=== PATIENT | male | born 1960 | race Caucasian/White ===

== ENCOUNTER → 2021-04-18 14:35 | Outpatient (BNVA) | payer MEDICARE, MEDICAID, SELFPAY | PROVIDERS: Family Provider Internal Medicine; PCP Internal Medicine; Visit Provider Internal Medicine Cardiovascular Disease | DX: I25.10 Atherosclerotic heart disease of native coronary artery without angina pectoris (principal); I11.0 Hypertensive heart disease with heart failure; I50.9 Heart failure, unspecified; I48.92 Unspecified atrial flutter; I47.2 Ventricular tachycardia | CPT/HCPCS: 99214 ==

== ENCOUNTER 2022-07-17 16:10 | Outpatient (CLI) | payer MEDICARE, MEDICAID, SELFPAY ==
--- NOTE | 2022-07-17 16:18 | CT_ITS ---
WS: [id number] CT HIP, WITH AND WITHOUT CONTRAST. 3-D HISTORY: RT HIP PAIN, PROSTATE CANCER, LEG WEAKNESS Technique: All CT scans at [facility] use at least one of these dose optimization techniques: automated exposure control; mA and/or kV adjustment per patient size (includes targeted exams where dose is matched to clinical indication); or iterative reconstruction. DLP: 1260.42 mGy-cm. Contrast: Omnipaque 350; 95 mL IV. COMPARISON: Radiographs 11/11/2018 No sclerotic or lytic bone lesions. No pathological fractures. Moderate narrowing of the joint. There is mild osteophytic ridging around the femoral head. Acetabular osteophytic ridging is also present. There are a few small subchondral cysts in both the femoral head and the superior acetabulum. The fe moral head abuts the superior lateral acetabulum with bone upon bone. No soft tissue mass or enhancin g lesions. Moderate SI joint arthritis. There is degenerative air in the SI joints but no destructive process. N o fusion of the SI joint. Moderate arterial calcifications in this iliac arteries. Urinary bladder is nondistended. Gallbladder wall thickening due to the underdistention. No adenopathy. CT/CT hip RT wo/w con [id number] IMPRESSION: 1. 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 2. There is bone upon bone involving the superior lateral hip joint. 3. No destructive bone lesions. No fracture.
[2022-07-17 16:59] LABS: Blood Urea Nitrogen 19 mg/dL (8-23); Glomerular Filtration Rate 75.7 mL/min (90-130)
[2022-07-17] MEDS: iohexol 350 mg/mL 500 mL Btl (per mL) IV (17:10)
== END 2022-07-17 16:11 | disposition home or self-care (01) ==
LOC: RAD 16:12
PROVIDERS: Radiology Neuroradiology; PCP Internal Medicine; Visit Provider Internal Medicine
DX: M16.11 Unilateral primary osteoarthritis, right hip (principal); Z91.81 History of falling; C61 Malignant neoplasm of prostate; R26.9 Unspecified abnormalities of gait and mobility; R27.9 Unspecified lack of coordination; R53.1 Weakness
CPT/HCPCS: 73702; 82565; 84520; Q9967

== ENCOUNTER → 2022-08-14 14:32 | Outpatient (BNVA) | payer MEDICARE, MEDICAID, SELFPAY | PROVIDERS: PCP Internal Medicine; Visit Provider Internal Medicine Cardiovascular Disease | DX: I25.10 Atherosclerotic heart disease of native coronary artery without angina pectoris (principal); I48.92 Unspecified atrial flutter; I11.0 Hypertensive heart disease with heart failure; I50.30 Unspecified diastolic (congestive) heart failure | CPT/HCPCS: 99214 ==

== ENCOUNTER 2023-07-30 11:15 | Emergency (ER) | payer MEDICARE, MEDICAID, SELFPAY ==
[2023-07-30 11:36] VITALS: BP 111/74; PULSE 71; RESP 18; TEMP 36.4; O2SAT 91
--- NOTE | 2023-07-30 11:49 | XRR_ITS ---
PROCEDURE INFORMATION: Exam: XR Left Finger(s) Exam date and time: 07/30/2023 11:54 AM Age: 62 years old Clinical indication: Swelling; Fingers; Left; Additional info: Middle finger swelling/redness TECHNIQUE: Imaging protocol: Radiologic exam of the left fingers. Views: Minimum 2 views. COMPARISON: CR XR finger LT min 2V [id number] 11/11/2018 2:30 PM FINDINGS: Bones/joints: Mild arthritis D IP joint. Otherwise, unremarkable. Soft tissues: Normal. XR/XR finger LT min 2V [id number] IMPRESSION: No acute findings.
--- NOTE | 2023-07-30 11:49 | ED_ITS ---
Documented by User: ALLI Aleman 07/30/23 16:36 HPI - Extremity Problem 2 General: Chief complaint: Extremity Problem,Nontraumatic Stated complaint: Right hand swelling/redness Time Seen by Provider: 07/30/23 11:36 Source: patient Mode of arrival: ambulatory Limitations: no limitations History of Present Illness: Patient is a nice 62-year-old male presents to ED today with a complaint of swelling, pain, redness, and warmth involving the left middle finger. He states 2 days ago the finger felt somewhat sore around his DIP joint. He denies any injury or trauma. Has not noticed any scratches, abrasions, bites, etc. He states the next day the finger was considerably swollen and red and warm to the touch. He states since then he has noticed significant pain with range of motion. No fevers. He does feel like the swelling is now extending into the dorsum of his right hand. MD Complaint: extremity pain and extremity swelling Onset (ago): day(s) Pain Consistency: constant Location: left and upper extremity (L middle finger) Quality: burning Radiation: none Relieving factors: nothing Exacerbating factors: range of motion Associated symptoms: Reports no associated symptoms; Deny fever(s) Review of Systems 2 Const: Denies: fever(s), chills, body aches, fatigue or malaise Musc: Reports: extremity pain and extremity swelling Neuro: Denies: numbness in extremities or sensory changes PFSH ED 2 PFSH: Medical History Ventricular tachycardia Diabetes CHF (congestive heart failure) HTN (hypertension) CAD (coronary artery disease) Atrial flutter Surgical History S/P appendectomy Family History Other CAD (coronary artery disease) Cancer Social History Smoking and tobacco/nicotine status: never used tobacco/nicotine Alcohol intake: never Substance/Drug Use: never Physical Exam 2 Const: COMMON NORMALS: no acute distress, patient oriented x3, no limitations, alert and well nourished GENERAL APPEARANCE: cooperative Resp: COMMON NORMALS: normal respiratory effort and clear to auscultation bilaterally AUSCULTATION: clear to auscultation bilaterally Cardio: COMMON NORMALS: regular rate and regular rhythm RATE: regular rate RHYTHM: regular rhythm Extremity: COMMON NORMALS: capillary refill normal GENERAL: Yes normal exam except as noted LEFT UPPER EXTREMITY: Yes hand & digits Left hand and digits: Yes neurovascular exam (normal) OTHER: pt has edema involving the entire digit of the left middle finger; he has erythema and warmth mainly affecting the extensor/dorsal surface; no bites/scratches/abrasions appreciated; patient has significant pain with flexion and extension of the digit; no obvious abscess formation present; erythema is starting to affect the dorsal aspect of the hand around the middle finger MCP joint-no further streaking into hand/wrist/forearm Neuro: COMMON NORMALS: patient oriented x3, moves all extremities, no focal motor deficits and no sensory deficits noted SENSORIUM/ORIENTATION: Yes alert Course 2 Consultations: Consultation #1: Dr. Cool hand surgery- Vital Signs: Vital signs: Vital Signs Temperature 97.6 F 07/30/23 11:36 Pulse Rate 69 07/30/23 17:46 Respiratory Rate 16 07/30/23 17:46 Blood Pressure 105/65 07/30/23 14:23 Pulse Oximetry 92 07/30/23 17:46 Oxygen Delivery Me thod Room Air 07/30/23 17:46 MDM - Extremity (Nontraumatic) Lab Data 07/30/23 12:13 07/30/23 12:13 Radiology Impressions Finger X-Ray 07/30/23 11:49 IMPRESSION: No acute findings. Laboratory Results WBC 13.40 10^3/uL (3.29-11.43) H 07/30/23 12:13 RBC 4.86 10^6/uL (3.85-5.65) 07/30/23 12:13 Hgb 14.00 g/dL (11.27-16.99) 07/30/23 12:13 Hct 43.6 % (37-53) 07/30/23 12:13 MCV 89.7 fl (82-101) 07/30/23 12:13 MCH 28.8 pg (27-33) 07/30/23 12:13 MCHC 32.1 g/dL (30-55) 07/30/23 12:13 RDW 13.7 % (12.1-15.1) 07/30/23 12:13 Plt Count 315 10^3/cmm (157-399) 07/30/23 12:13 MPV 10.6 fL (7.4-10.4) H 07/30/23 12:13 Neut % (Auto) 72.7 % 07/30/23 12:13 Lymph % (Auto) 14.9 % 07/30/23 12:13 [place] % (Auto) 5.9 % 07/30/23 12:13 Eos % (Auto) 3.8 % 07/30/23 12:13 Baso % (Auto) 0.9 % 07/30/23 12:13 Neut # (Auto) 9.74 10^3/uL (1.8-7.7) H 07/30/23 12:13 Lymph # (Auto) 2.0 10^3/uL (0.8-4.8) 07/30/23 12:13 [place] # (Auto) 0.8 10^3/uL (0.2-0.9) 07/30/23 12:13 Eos # (Auto) 0.5 10^3/uL (0.0-0.8) 07/30/23 12:13 Baso # (Auto) 0.1 10^3/uL (0.0-0.1) 07/30/23 12:13 Nucleated RBC % (auto) 0.1 % 07/30/23 12:13 Nucleated RBCs # 0.0 /100WBC 07/30/23 12:13 Sodium 135 mmol/L (136-145) L 07/30/23 12:13 Potassium 4.2 mmol/L (3.5-5.1) 07/30/23 12:13 Chloride 95 mmol/L (98-107) L 07/30/23 12:13 Carbon Dioxide 29 mmol/L (22-29) 07/30/23 12:13 Anion Gap 15.2 (5-19) 07/30/23 12:13 BUN 10 mg/dL (8-23) 07/30/23 12:13 Creatinine 0.7 mg/dL (0.7-1.2) 07/30/23 12:13 GFR Calculation 113.9 mL/min (90-130) 07/30/23 12:13 Glucose 177 mg/dL (65-115) H 07/30/23 12:13 Calculated Osmolality 283 mOsm/kg (285-295) L 07/30/23 12:13 Calcium 9.8 mg/dL (8.5-10.5) 07/30/23 12:13 Total Bilirubin 0.3 mg/dL (0.15-1.2) 07/30/23 12:13 AST 37 U/L (0-40) 07/30/23 12:13 ALT 21 U/L (0-41) 07/30/23 12:13 Alkaline Phosphatase 68 U/L (40-130) 07/30/23 12:13 C-Reactive Protein 41.3 mg/L (0.0-4.9) H 07/30/23 12:13 Total Protein 7.0 g/dL (6.6-8.7) 07/30/23 12:13 Albumin 3.4 g/dL (3.5-5.2) L 07/30/23 12:13 Globulin 3.6 g/dL (1.3-4.6) 07/30/23 12:13 All radiology interpretation(s) finalized by discharge Discharge Plan Discharge Patient Disposition: Home Clinical Impression: Finger infection, Cellulitis Condition: Stable Prescriptions: New methylprednisolone 4 mg tablets,dose pack See Rx Instructions .ROUTE .COMPLEX Qty: 21 0RF Rx Instructions: orally per package directions cephalexin 500 mg capsule 500 mg PO Q6H 10 Days Qty: 40 0RF No Action budesonide-formoterol [Symbicort] 80-4.5 mcg/actuation HFA aerosol inhaler 1 inh inhalation BID amitriptyline 25 mg tablet 25 mg PO DAILY metformin 500 mg tablet 500 mg PO ONCE Eliquis 5 mg tablet 5 mg PO BID Qty: 180 3RF fenofibrate nanocrystallized 145 mg tablet 145 mg PO DAILY Qty: 90 3RF metoprolol tartrate 100 mg tablet 100 mg PO BID Qty: 180 3RF furosemide 40 mg tablet 140 mg PO DIRECTED Qty: 315 3RF Rx Instructions: TAKE TWO TABLETS BY MOUTH IN THE MORNING AND TAKE 1 AND 1/2 TABLETS IN THE EVENING amiodarone 200 mg tablet 200 mg PO DAILY Qty: 90 3RF ramipril 5 mg capsule 5 mg PO DAILY Qty: 90 3RF atorvastatin 40 mg tablet 40 mg PO DAILY Qty: 90 3RF magnesium oxide 400 mg (241.3 mg magnesium) tablet 400 mg PO BID Qty: 180 3RF potassium chloride 20 mEq tablet extended release 20 meq PO BID Qty: 180 3RF Discharge Orders: Discharge ED (Routine); Ordered 07/30/23 Ordered By: Anyi Koenig Referrals: Jory Barron [Primary Care Provider] - Discharge Diet: Usual diet Discharge Activity: Increase activity as tolerated Patient Instructions: Cellulitis (ED) Activity Restrictions/Additional Instructions: [facility], Dr. Sanchez. After reviewing the results of your x-ray, discussing your physical examination, and looking over pictures of your finger today, he is encouraged that this can be treated with medication. He requested specific medication for you including antibiotics and a Medrol Dosepak. Given that your preferred pharmacy is closed we did provide your first doses here in the emergency department tonight. You may wish to keep your finger randy taped to prevent accidental flexion extension for the next few days to help with your pain. You can still apply ice for 15 to 20 minutes every couple of hours to help with your discomfort as well but, your treatment course should also help with your pain. If you are able, you can use Tylenol and or ibuprofen to help with pain as well during this time. He requested you have a follow-up appoint with your primary care doctor in the next few days for recheck. That way, if you are experiencing improvement you can complete your treatment course. However, if you notice no improvement, further evaluation and recommendations for follow-up through the hand specialist can be discussed again. Sign Out Sign Out Data: Patient Sign Out occurred on 07/30/23 at 17:22. Patient's care was discussed, and care was transferred from ALLI Aleman to ALLI Ryder. Coding Level of Care Code ED Dental Assistant for Chg Fwd Documented by User: ALLI Ryder 07/31/23 02:01 HPI - Extremity Problem 2 General: Chief complaint: Extremity Problem,Nontraumatic Stated complaint: Right hand swelling/redness Time Seen by Provider: 07/30/23 11:36 [facility] ED 2 PFS: Medical History Ventricular tachycardia Diabetes CHF (congestive heart failure) HTN (hypertension) CAD (coronary artery disease) Atrial flutter Surgical History S/P appendectomy Family History Other CAD (coronary artery disease) Cancer Social History Smoking and tobacco/nicotine status: never used tobacco/nicotine Alcohol intake: never Substance/Drug Use: never Course 2 Vital Signs: Vital signs: Vital Signs Temperature 97.6 F 07/30/23 11:36 Pulse Rate 69 07/30/23 17:46 Respiratory Rate 16 07/30/23 17:46 Blood Pressure 105/65 07/30/23 14:23 Pulse Oximetry 92 07/30/23 17:46 Oxygen Delivery Me thod Room Air 07/30/23 17:46 MDM - Extremity (Nontraumatic) Medical Decision Making Chart reviewed and patient discussed with midlevel. Agree with assessment and plan. Anyi Koenig PA-C: Transfer of care from [facility] at 1500. At the time of handoff, we are still waiting to hear back from [facility] hand specialist. I did receive a phone call from Dr. Sanchez. As they are in a different healthcare system, he was having difficulty viewing imaging. He did request pictures of the patient's finger which were sent to him for viewing. He indicated that patient appears to be able to be treated on an outpatient basis. He recommended a Medrol Dosepak and antibiotics be provided with follow-up through primary care at the end of the week for recheck. If needed for any continued symptoms or worsening, he can then have a referral to hand specialty for follow-up at that time. I discussed all this with the patient including my discussion with the hand specialist. Explained that we will start steroids and antibiotics with close monitoring and recommended follow-up with primary care at the end of the week. Patient indicated he was in agreement to the treatment plan and verbalizes understanding. 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 Return precautions given. Patient verbalizes understanding and agreement to treatment plan. Differential Diagnosis Likely cellulitis; Unlikely herpes zoster, gout or deep venous thrombosis of upper extremity Lab Data 07/30/23 12:13 07/30/23 12:13 Radiology Impressions Finger X-Ray 07/30/23 11:49 IMPRESSION: No acute findings. Laboratory Results WBC 13.40 10^3/uL (3.29-11.43) H 07/30/23 12:13 RBC 4.86 10^6/uL (3.85-5.65) 07/30/23 12:13 Hgb 14.00 g/dL (11.27-16.99) 07/30/23 12:13 Hct 43.6 % (37-53) 07/30/23 12:13 MCV 89.7 fl (82-101) 07/30/23 12:13 MCH 28.8 pg (27-33) 07/30/23 12:13 MCHC 32.1 g/dL (30-55) 07/30/23 12:13 RDW 13.7 % (12.1-15.1) 07/30/23 12:13 Plt Count 315 10^3/cmm (157-399) 07/30/23 12:13 MPV 10.6 fL (7.4-10.4) H 07/30/23 12:13 Neut % (Auto) 72.7 % 07/30/23 12:13 Lymph % (Auto) 14.9 % 07/30/23 12:13 [place] % (Auto) 5.9 % 07/30/23 12:13 Eos % (Auto) 3.8 % 07/30/23 12:13 Baso % (Auto) 0.9 % 07/30/23 12:13 Neut # (Auto) 9.74 10^3/uL (1.8-7.7) H 07/30/23 12:13 Lymph # (Auto) 2.0 10^3/uL (0.8-4.8) 07/30/23 12:13 [place] # (Auto) 0.8 10^3/uL (0.2-0.9) 07/30/23 12:13 Eos # (Auto) 0.5 10^3/uL (0.0-0.8) 07/30/23 12:13 Baso # (Auto) 0.1 10^3/uL (0.0-0.1) 07/30/23 12:13 Nucleated RBC % (auto) 0.1 % 07/30/23 12:13 Nucleated RBCs # 0.0 /100WBC 07/30/23 12:13 Sodium 135 mmol/L (136-145) L 07/30/23 12:13 Potassium 4.2 mmol/L (3.5-5.1) 07/30/23 12:13 Chloride 95 mmol/L (98-107) L 07/30/23 12:13 Carbon Dioxide 29 mmol/L (22-29) 07/30/23 12:13 Anion Gap 15.2 (5-19) 07/30/23 12:13 BUN 10 mg/dL (8-23) 07/30/23 12:13 Creatinine 0.7 mg/dL (0.7-1.2) 07/30/23 12:13 GFR Calculation 113.9 mL/min (90-130) 07/30/23 12:13 Glucose 177 mg/dL (65-115) H 07/30/23 12:13 Calculated Osmolality 283 mOsm/kg (285-295) L 07/30/23 12:13 Calcium 9.8 mg/dL (8.5-10.5) 07/30/23 12:13 Total Bilirubin 0.3 mg/dL (0.15-1.2) 07/30/23 12:13 AST 37 U/L (0-40) 07/30/23 12:13 ALT 21 U/L (0-41) 07/30/23 12:13 Alkaline Phosphatase 68 U/L (40-130) 07/30/23 12:13 C-Reactive Protein 41.3 mg/L (0.0-4.9) H 07/30/23 12:13 Total Protein 7.0 g/dL (6.6-8.7) 07/30/23 12:13 Albumin 3.4 g/dL (3.5-5.2) L 07/30/23 12:13 Globulin 3.6 g/dL (1.3-4.6) 07/30/23 12:13 Discharge Plan Discharge Patient Disposition: Home Clinical Impression: Finger infection, Cellulitis Condition: Stable Prescriptions: New methylprednisolone 4 mg tablets,dose pack See Rx Instructions .ROUTE .COMPLEX Qty: 21 0RF Rx Instructions: orally per package directions cephalexin 500 mg capsule 500 mg PO Q6H 10 Days Qty: 40 0RF No Action budesonide-formoterol [Symbicort] 80-4.5 mcg/actuation HFA aerosol inhaler 1 inh inhalation BID amitriptyline 25 mg tablet 25 mg PO DAILY metformin 500 mg tablet 500 mg PO ONCE Eliquis 5 mg tablet 5 mg PO BID Qty: 180 3RF fenofibrate nanocrystallized 145 mg tablet 145 mg PO DAILY Qty: 90 3RF metoprolol tartrate 100 mg tablet 100 mg PO BID Qty: 180 3RF furosemide 40 mg tablet 140 mg PO DIRECTED Qty: 315 3RF Rx Instructions: TAKE TWO TABLETS BY MOUTH IN THE MORNING AND TAKE 1 AND 1/2 TABLETS IN THE EVENING amiodarone 200 mg tablet 200 mg PO DAILY Qty: 90 3RF ramipril 5 mg capsule 5 mg PO DAILY Qty: 90 3RF atorvastatin 40 mg tablet 40 mg PO DAILY Qty: 90 3RF magnesium oxide 400 mg (241.3 mg magnesium) tablet 400 mg PO BID Qty: 180 3RF potassium chloride 20 mEq tablet extended release 20 meq PO BID Qty: 180 3RF Discharge Orders: Discharge ED (Routine); Ordered 07/30/23 Ordered By: Anyi Koenig Referrals: Jory Barron [Primary Care Provider] - Discharge Diet: Usual diet Discharge Activity: Increase activity as tolerated Patient Instructions: Cellulitis (ED) Activity Restrictions/Additional Instructions: We were able to speak with the [facility] hand specialist, Dr. Sanchez. After reviewing the results of your x-ray, discussing your physical examination, and looking over pictures of your finger today, he is encouraged that this can be treated with medication. He requested specific medication for you including antibiotics and a Medrol Dosepak. Given that your preferred pharmacy is closed we did provide your first doses here in the emergency department tonight. You may wish to keep your finger randy taped to prevent accidental flexion extension for the next few days to help with your pain. You can still apply ice for 15 to 20 minutes every couple of hours to help with your discomfort as well but, your treatment course should also help with your pain. If you are able, you can use Tylenol and or ibuprofen to help with pain as well during this time. He requested you have a follow-up appoint with your primary care doctor in the next few days for recheck. That way, if you are experiencing improvement you can complete your treatment course. However, if you notice no improvement, further evaluation and recommendations for follow-up through the hand specialist can be discussed again. Sign Out Sign Out Data: Patient Sign Out occurred on 07/30/23 at 17:22. Patient's care was discussed, and care was transferred from ALLI Aleman to ALLI Ryder. Coding Level of Care Code ED Dental Assistant for Chg Fwd Documented by User: Braydon Li, 07/30/23 18:35 HPI - Extremity Problem 2 General: Chief complaint: Extremity Problem,Nontraumatic Stated complaint: Right hand swelling/redness Time Seen by Provider: 07/30/23 11:36 PFSH ED 2 PFSH: Medical History Ventricular tachycardia Diabetes CHF (congestive heart failure) HTN (hypertension) CAD (coronary artery disease) Atrial flutter Surgical History S/P appendectomy Family History Other CAD (coronary artery disease) Cancer Social History Smoking and tobacco/nicotine status: never used tobacco/nicotine Alcohol intake: never Substance/Drug Use: never Course 2 Vital Signs: Vital signs: Vital Signs Temperature 97.6 F 07/30/23 11:36 Pulse Rate 69 07/30/23 17:46 Respiratory Rate 16 07/30/23 17:46 Blood Pressure 105/65 07/30/23 14:23 Pulse Oximetry 92 07/30/23 17:46 Oxygen Delivery Me thod Room Air 07/30/23 17:46 MDM - Extremity (Nontraumatic) Medical Decision Making Chart reviewed and patient discussed with midlevel. Agree with assessment and plan. Lab Data 07/30/23 12:13 07/30/23 12:13 Radiology Impressions Finger X-Ray 07/30/23 11:49 IMPRESSION: No acute findings. Laboratory Results WBC 13.40 10^3/uL (3.29-11.43) H 07/30/23 12:13 RBC 4.86 10^6/uL (3.85-5.65) 07/30/23 12:13 Hgb 14.00 g/dL (11.27-16.99) 07/30/23 12:13 Hct 43.6 % (37-53) 07/30/23 12:13 MCV 89.7 fl (82-101) 07/30/23 12:13 MCH 28.8 pg (27-33) 07/30/23 12:13 MCHC 32.1 g/dL (30-55) 07/30/23 12:13 RDW 13.7 % (12.1-15.1) 07/30/23 12:13 Plt Count 315 10^3/cmm (157-399) 07/30/23 12:13 MPV 10.6 fL (7.4-10.4) H 07/30/23 12:13 Neut % (Auto) 72.7 % 07/30/23 12:13 Lymph % (Auto) 14.9 % 07/30/23 12:13 [place] % (Auto) 5.9 % 07/30/23 12:13 Eos % (Auto) 3.8 % 07/30/23 12:13 Baso % (Auto) 0.9 % 07/30/23 12:13 Neut # (Auto) 9.74 10^3/uL (1.8-7.7) H 07/30/23 12:13 Lymph # (Auto) 2.0 10^3/uL (0.8-4.8) 07/30/23 12:13 [place] # (Auto) 0.8 10^3/uL (0.2-0.9) 07/30/23 12:13 Eos # (Auto) 0.5 10^3/uL (0.0-0.8) 07/30/23 12:13 Baso # (Auto) 0.1 10^3/uL (0.0-0.1) 07/30/23 12:13 Nucleated RBC % (auto) 0.1 % 07/30/23 12:13 Nucleated RBCs # 0.0 /100WBC 07/30/23 12:13 Sodium 135 mmol/L (136-145) L 07/30/23 12:13 Potassium 4.2 mmol/L (3.5-5.1) 07/30/23 12:13 Chloride 95 mmol/L (98-107) L 07/30/23 12:13 Carbon Dioxide 29 mmol/L (22-29) 07/30/23 12:13 Anion Gap 15.2 (5-19) 07/30/23 12:13 BUN 10 mg/dL (8-23) 07/30/23 12:13 Creatinine 0.7 mg/dL (0.7-1.2) 07/30/23 12:13 GFR Calculation 113.9 mL/min (90-130) 07/30/23 12:13 Glucose 177 mg/dL (65-115) H 07/30/23 12:13 Calculated Osmolality 283 mOsm/kg (285-295) L 07/30/23 12:13 Calcium 9.8 mg/dL (8.5-10.5) 07/30/23 12:13 Total Bilirubin 0.3 mg/dL (0.15-1.2) 07/30/23 12:13 AST 37 U/L (0-40) 07/30/23 12:13 ALT 21 U/L (0-41) 07/30/23 12:13 Alkaline Phosphatase 68 U/L (40-130) 07/30/23 12:13 C-Reactive Protein 41.3 mg/L (0.0-4.9) H 07/30/23 12:13 Total Protein 7.0 g/dL (6.6-8.7) 07/30/23 12:13 Albumin 3.4 g/dL (3.5-5.2) L 07/30/23 12:13 Globulin 3.6 g/dL (1.3-4.6) 07/30/23 12:13 Discharge Plan Discharge Patient Disposition: Home Clinical Impression: Finger infection, Cellulitis Condition: Stable Prescriptions: New methylprednisolone 4 mg tablets,dose pack See Rx Instructions .ROUTE .COMPLEX Qty: 21 0RF Rx Instructions: orally per package directions cephalexin 500 mg capsule 500 mg PO Q6H 10 Days Qty: 40 0RF No Action budesonide-formoterol [Symbicort] 80-4.5 mcg/actuation HFA aerosol inhaler 1 inh inhalation BID amitriptyline 25 mg tablet 25 mg PO DAILY metformin 500 mg tablet 500 mg PO ONCE Eliquis 5 mg tablet 5 mg PO BID Qty: 180 3RF fenofibrate nanocrystallized 145 mg tablet 145 mg PO DAILY Qty: 90 3RF metoprolol tartrate 100 mg tablet 100 mg PO BID Qty: 180 3RF furosemide 40 mg tablet 140 mg PO DIRECTED Qty: 315 3RF Rx Instructions: TAKE TWO TABLETS BY MOUTH IN THE MORNING AND TAKE 1 AND 1/2 TABLETS IN THE EVENING amiodarone 200 mg tablet 200 mg PO DAILY Qty: 90 3RF ramipril 5 mg capsule 5 mg PO DAILY Qty: 90 3RF atorvastatin 40 mg tablet 40 mg PO DAILY Qty: 90 3RF magnesium oxide 400 mg (241.3 mg magnesium) tablet 400 mg PO BID Qty: 180 3RF potassium chloride 20 mEq tablet extended release 20 meq PO BID Qty: 180 3RF Discharge Orders: Discharge ED (Routine); Ordered 07/30/23 Ordered By: Anyi Koenig Referrals: Jory Barron [Primary Care Provider] - Discharge Diet: Usual diet Discharge Activity: Increase activity as tolerated Patient Instructions: Cellulitis (ED) Activity Restrictions/Additional Instructions: [facility], Dr. Sanchez. After reviewing the results of your x-ray, discussing your physical examination, and looking over pictures of your finger today, he is encouraged that this can be treated with medication. He requested specific medication for you including antibiotics and a Medrol Dosepak. Given that your preferred pharmacy is closed we did provide your first doses here in the emergency department tonight. You may wish to keep your finger randy taped to prevent accidental flexion extension for the next few days to help with your pain. You can still apply ice for 15 to 20 minutes every couple of hours to help with your discomfort as well but, your treatment course should also help with your pain. If you are able, you can use Tylenol and or ibuprofen to help with pain as well during this time. He requested you have a follow-up appoint with your primary care doctor in the next few days for recheck. That way, if you are experiencing improvement you can complete your treatment course. However, if you notice no improvement, further evaluation and recommendations for follow-up through the hand specialist can be discussed again. Sign Out Sign Out Data: Patient Sign Out occurred on 07/30/23 at 17:22. Patient's care was discussed, and care was transferred from ALLI Aleman to ALLI Ryder. Coding Level of Care Code ED Dental Assistant for Rosalee Alatorre
[2023-07-30 13:27] LABS: Basophils # 0.1 10^3/uL (0.0-0.1); Basophils % 0.9 %; Eosinophils # 0.5 10^3/uL (0.0-0.8); Eosinophils % 3.8 %; Hematocrit 43.6 % (37-53); Lymphocytes % 14.9 %; Mean Corpuscular HGB Conc 32.1 g/dL (30-55); Mean Corpuscular Hemoglobin 28.8 pg (27-33); Mean Corpuscular Volume 89.7 fl (82-101); Mean Platelet Volume 10.6 fL (7.4-10.4); Monocytes # 0.8 10^3/uL (0.2-0.9); Monocytes % 5.9 %; Neutrophils # 9.74 10^3/uL (1.8-7.7); Neutrophils % 72.7 %; Nucleated Red Blood Cells % 0.1 %; Platelet Count 315 10^3/cmm (157-399); Red Blood Count 4.86 10^6/uL (3.85-5.65); Red Cell Distribution Width 13.7 % (12.1-15.1)
[2023-07-30 13:39] LABS: Alanine Aminotransferase 21 U/L (0-41); Albumin Level 3.4 g/dL (3.5-5.2); Alkaline Phosphatase 68 U/L (40-130); Aspartate Amino Transferase 37 U/L (0-40); Blood Urea Nitrogen 10 mg/dL (8-23); C Reactive Protein 41.3 mg/L (0.0-4.9); Calcium 9.8 mg/dL (8.5-10.5); Carbon Dioxide 29 mmol/L (22-29); Chloride 95 mmol/L (98-107); Globulin 3.6 g/dL (1.3-4.6); Glomerular Filtration Rate 113.9 mL/min (90-130); Glucose 177 mg/dL (65-115); Osmolality Calculated 283 mOsm/kg (285-295); Sodium 135 mmol/L (136-145); Total Bilirubin 0.3 mg/dL (0.15-1.2)
[2023-07-30 13:41] LABS: Anion Gap 15.2 (5-19); Potassium 4.2 mmol/L (3.5-5.1)
[2023-07-30 13:59] VITALS: RESP 20
[2023-07-30] MEDS: morphine 4 mg/mL SDV 1 mL IVP ×2 (13:59→17:22)
[2023-07-30] MEDS: ondansetron 2 mg/ML SDV 2 mL 4 MG IVP (13:59)
[2023-07-30] MEDS: vancomycin 1,000 MG in sodium chloride 0.9% 250 ML 250 MG IV (14:00)
[2023-07-30 14:23] VITALS: BP 105/65; PULSE 72; RESP 17; O2SAT 92
[2023-07-30 17:46] VITALS: PULSE 69; RESP 16; O2SAT 92
[2023-07-30] MEDS: cephALEXin 500 mg Capsule PO (18:12)
[2023-07-30] MEDS: methylPREDNISolone sod succ 125 mg/2 mL INJ 80 MG IVP (18:12)
== END 2023-07-30 18:21 | disposition home or self-care (01) ==
PROVIDERS: Physician Assistant; Emergency Provider Physician Assistant; PCP Internal Medicine
DX: L03.012 Cellulitis of left finger (principal); E11.9 Type 2 diabetes mellitus without complications; I11.0 Hypertensive heart disease with heart failure; I50.9 Heart failure, unspecified; I25.10 Atherosclerotic heart disease of native coronary artery without angina pectoris; Z79.01 Long term (current) use of anticoagulants; Z79.84 Long term (current) use of oral hypoglycemic drugs
CPT/HCPCS: 36415; 73140; 80053; 85025; 86140; 87040; 96365; 96375; 96376; 99284; J2270; J2405; J2919; J3370; J7050

== ENCOUNTER → 2023-11-13 14:30 | Outpatient (BNVA) | payer MEDICARE, MEDICAID, SELFPAY | PROVIDERS: PCP Internal Medicine; Visit Provider Internal Medicine | DX: I25.10 Atherosclerotic heart disease of native coronary artery without angina pectoris (principal); I48.92 Unspecified atrial flutter; I11.0 Hypertensive heart disease with heart failure; I50.9 Heart failure, unspecified; I47.20 Ventricular tachycardia, unspecified | CPT/HCPCS: 99213 ==

== ENCOUNTER → 2024-01-03 13:55 | Outpatient (BNVA) | payer MEDICARE, MEDICAID, SELFPAY | PROVIDERS: PCP Internal Medicine; Visit Provider Student in an Organized Health Care Education/Training Program | DX: M25.512 Pain in left shoulder (principal); M75.42 Impingement syndrome of left shoulder | CPT/HCPCS: 20610; 73030; 99204 ==

== ENCOUNTER → 2024-04-08 10:21 | Outpatient (BNVA) | payer MEDICARE, MEDICAID, SELFPAY | PROVIDERS: PCP Internal Medicine; Visit Provider Student in an Organized Health Care Education/Training Program | DX: M75.42 Impingement syndrome of left shoulder (principal); R03.0 Elevated blood-pressure reading, without diagnosis of hypertension | CPT/HCPCS: 99213 ==

== ENCOUNTER 2024-07-09 13:39 | Emergency (ER) | payer MEDICARE, MEDICAID, SELFPAY ==
[2024-07-09 13:50] VITALS: BP 161/90; PULSE 95; RESP 20; TEMP 36.6; O2SAT 93
--- NOTE | 2024-07-09 16:14 | CTR_ITS ---
PROCEDURE INFORMATION: Exam: CTA Abdomen and Pelvis With Contrast Exam date and time: 07/09/2024 6:25 PM Age: 63 years old Clinical indication: Abdominal pain; Generalized; Prior surgery; Surgery date: 6+ months; Surgery type: Gb, appy; Additional info: Pain, with oral contrast TECHNIQUE: Imaging protocol: Computed tomographic angiography of the abdomen and pelvis with contrast. Exam focused on the arteries. 3D rendering (Not supervised by radiologist): MIP and/or 3D reconstructed images were created by the technologist. Radiation optimization: All CT scans at this facility use at least one of these dose optimization techniques: automated exposure control; mA and/or kV adjustment per patient size (includes targeted exams where dose is matched to clinical indication); or iterative reconstruction. Contrast material: OMNIPAQUE 350; Contrast volume: 125 ml; Contrast route: INTRAVENOUS (IV); COMPARISON: 1. CR XR hip RT 2-3V wo/w pel* [id number] 11/11/2018 2:[address] abdomen pelvis w con* [id number] 02/21/2017 7:14 PM RADIATION DOSE METRICS: Total DLP (mGy-cm): 972.19 FINDINGS: Lungs: The lung bases are clear. Aorta: The distal thoracic and abdominal aorta are normal in course and caliber. There is no evidence of aneurysm, dissection, or significant luminal narrowing. Mild atherosclerotic calcifications are present. Celiac trunk and mesenteric arteries: The celiac artery, superior mesenteric artery, and inferior mesenteric artery are patent. Renal arteries: Bilateral renal arteries are patent. Right iliac arteries: Mild atherosclerotic calcifications of the right common iliac artery. The right iliac arterial system is patent. Left iliac arteries: Moderate soft and calcified plaque of the left common iliac artery without definitive hemodynamically significant stenosis. The left iliac arterial system is patent. Liver: There is suggestion of fatty liver, suboptimally assessed on postcontrast imaging. The liver is otherwise normal. Gallbladder and biliary ducts: The gallbladder is normal. There is no ductal dilatation. Pancreas: The pancreas is normal. Spleen: The spleen is normal. Adrenal glands: The adrenal glands are normal. Kidneys and ureters: There is normal enhancement of the kidneys. No renal calcifications are identified. There is no hydronephrosis. 1.6 cm densely calcified lesion in the midpole of the right kidney, stable compared to 2018. There are bilateral subcentimeter renal low-density lesions which are too small for accurate characterization, likely representing simple cysts. Stomach and bowel: There is no large or small bowel obstruction. There is no evidence of bowel wall thickening. Appendix: Postoperative changes in the expected location of the appendix. Intraperitoneal space: No inflammatory changes are identified. There is no free fluid or fluid collection seen. There is no pneumoperitoneum. Lymph nodes: No enlarged lymph nodes are identified. Urinary bladder: The bladder is unremarkable. Reproductive: The prostate is grossly unremarkable. Bones/joints: No acute osseous abnormalities are seen. Soft tissues: Nonspecific linear calcifications along the kwxtt-eafgfat-ozjo-left pelvic sidewall likely present on prior study. CT/CT angio abdomen pelvis [id number] IMPRESSION: 1. No acute intra-abdominal or pelvic process. 2. No CT angiographic evidence of acute arterial pathology in the abdomen or pelvis. 3. Other nonemergent findings above.
--- NOTE | 2024-07-09 16:15 | ECG_ITS ---
[facility] Date: 2024-07-09 Pat Name: Emir Blackmon Department: Room: Gender: Male [employer] Operator: : 1960 Requested By: Pierce Rowe Order Number: [id number] Reading MD: Measurements Intervals [place] Rate: 95 P: 52 DE: 191 QRS: 15 QRSD: 97 T: 43 QT: 395 QTc: 497 Interpretive Statements SINUS RHYTHM POSSIBLE LEFT ATRIAL ENLARGEMENT [-0.1mV P-WAVE IN V1/V2] ANTEROLATERAL MYOCARDIAL INFARCTION , PROBABLY OLD [40+ ms Q WAVE IN I/aVL/V3-V6] [email or web address]
--- NOTE | 2024-07-09 16:19 | W.ED.ABDPA2 ---
Documented by User: Pierce Rowe MD 07/09/24 18:17 HPI - Abdominal Pain General: Chief Complaint: Abdominal Pain Stated Complaint: abdominal pain Time Seen by Provider: 07/09/24 16:04 History of Present Illness: Chief plaint abdominal pain vomiting and no bowel movement. Patient states that over the weekend he ate a large steak and the next day he cannot have a bowel movement. He states he developed abdominal pain that is crampy lower abdominal pain and then vomiting. No black bloody stools or emesis. No fever. Related Data Home Medications ?Medication ?Instructions ?Recorded ?Confirmed amitriptyline 25 mg tablet 25 mg PO DAILY 06/12/19 04/08/24 acetaminophen 500 mg tablet 500 mg PO Q8H PRN 11/13/23 04/08/24 albuterol sulfate 90 mcg/actuation 2 puff inhalation QID 11/13/23 04/08/24 aerosol inhaler alprazolam 0.5 mg tablet (Xanax) 0.5 mg PO TID 11/13/23 04/08/24 calcium 315 mg (as 1 tab PO BID 11/13/23 04/08/24 citrate)-vitamin D3 5 mcg (200 unit) tablet (Calcium Citrate + D) cholecalciferol (vitamin D3) 1,250 PO 11/13/23 04/08/24 mcg (50,000 unit) capsule docusate sodium 100 mg capsule 100 mg PO BID 11/13/23 04/08/24 (Colace) furosemide 40 mg tablet 40 mg PO BID 11/13/23 04/08/24 pantoprazole 40 mg tablet,delayed 40 mg PO DAILY 11/13/23 04/08/24 release fluticasone furoate 50 inhalation 04/08/24 04/08/24 mcg-vilanterol 25 mcg/dose inhalation powder (Breo Ellipta) Previous Rx's ?Medication ?Instructions ?Recorded magnesium oxide 400 mg (241.3 mg 400 mg PO BID #180 tabs 09/26/22 magnesium) tablet amiodarone 200 mg tablet See Rx Instructions .Route 02/18/24 .COMPLEX #90 tabs apixaban 5 mg tablet (Eliquis) See Rx Instructions .Route 02/18/24 .COMPLEX #180 tabs atorvastatin 40 mg tablet See Rx Instructions .Route 02/18/24 .COMPLEX #90 tabs fenofibrate nanocrystallized 145 See Rx Instructions .Route 02/18/24 mg tablet .COMPLEX #90 tabs metoprolol tartrate 100 mg tablet See Rx Instructions .Route 02/18/24 .COMPLEX #180 tabs potassium chloride 20 mEq See Rx Instructions .Route 02/18/24 tablet,extended release .COMPLEX #180 tabs ramipril 5 mg capsule See Rx Instructions .Route 02/18/24 .COMPLEX #90 caps glycerin (adult) 1 supp ID DAILY PRN constipation 07/09/24 #12 ea magnesium citrate 296 ml PO ONCE #296 mL 07/09/24 polyethylene glycol 3350 17 17 g PO DAILY #510 grams 07/09/24 gram/dose oral powder (Miralax) Allergies Allergy/AdvReac Type Severity Reaction Status Date / Time captopril Allergy Unknown Unknown Verified 04/08/24 10:54 [facility] ED PFSH: Medical History Ventricular tachycardia Diabetes CHF (congestive heart failure) HTN (hypertension) CAD (coronary artery disease) Atrial flutter Surgical History S/P appendectomy Family History Other CAD (coronary artery disease) Cancer Social History Smoking and tobacco/nicotine status: former use of tobacco/nicotine Alcohol intake: never Substance/Drug Use: never Physical Exam Narrative: EXAM NARRATIVE: Patient is alert mildly uncomfortable but no acute distress. Abdomen soft with mild lower abdominal tenderness without guarding or rebound. Heart regular rhythm. Lung sounds are clear. Neck is supple. Normal conjunctiva. Moist mucous membranes. Extremities warm well-perfused. Speech is clear. Moves extremities freely. No evident deformity of the extremities. He moves his back freely. No ataxia. Course Vital Signs: Vital signs: Vital Signs Temperature 97.8 F 07/09/24 13:50 Pulse Rate 92 07/09/24 19:53 Respiratory Rate 20 H 07/09/24 19:53 Blood Pressure 167/101 07/09/24 19:53 Pulse Oximetry 93 07/09/24 19:53 Oxygen Delivery Me thod Room Air 07/09/24 19:53 MDM - Abdominal Pain Medical Decision Making Patient presents complaining of abdominal pain vomiting and no bowel movement. This is concerning for bowel obstruction. May be constipation however as well. Patient does have a history of A-fib he is on Eliquis and amiodarone. Ischemic colitis or mesenteric ischemia considered, volvulus, broad differential. Not suggestive of cauda equina syndrome by history and exam. Plan to hydrate with 1 L normal saline IV fluid bolus and I ordered CBC CMP lipase and lactic and CT angio abdomen pelvis and EKG. Patient states he has had appendectomy. endorsed to Dr. Chavez at 1800 Lab Data 07/09/24 16:53 07/09/24 16:53 Labs/Radiology: Radiology Impressions Abdomen/Pelvis CTA 07/09/24 16:14 IMPRESSION: 1. No acute intra-abdominal or pelvic process. 2. No CT angiographic evidence of acute arterial pathology in the abdomen or pelvis. 3. Other nonemergent findings above. Laboratory Results WBC 11.20 10^3/uL (3.29-11.43) 07/09/24 16:53 RBC 5.44 10^6/uL (3.85-5.65) 07/09/24 16:53 Hgb 14.40 g/dL (11.27-16.99) 07/09/24 16:53 Hct 46.4 % (37-53) 07/09/24 16:53 MCV 85.3 fl (82-101) 07/09/24 16:53 MCH 26.5 pg (27-33) L 07/09/24 16:53 MCHC 31.0 g/dL (30-55) 07/09/24 16:53 RDW 14.2 % (12.1-15.1) 07/09/24 16:53 Plt Count 262 10^3/cmm (157-399) 07/09/24 16:53 MPV 10.3 fL (7.4-10.4) 07/09/24 16:53 Neut % (Auto) 74.8 % 07/09/24 16:53 Lymph % (Auto) 16.3 % 07/09/24 16:53 [place] % (Auto) 6.8 % 07/09/24 16:53 Eos % (Auto) 0.6 % 07/09/24 16:53 Baso % (Auto) 0.7 % 07/09/24 16:53 Neut # (Auto) 8.37 10^3/uL (1.8-7.7) H 07/09/24 16:53 Lymph # (Auto) 1.8 10^3/uL (0.8-4.8) 07/09/24 16:53 [place] # (Auto) 0.8 10^3/uL (0.2-0.9) 07/09/24 16:53 Eos # (Auto) 0.1 10^3/uL (0.0-0.8) 07/09/24 16:53 Baso # (Auto) 0.1 10^3/uL (0.0-0.1) 07/09/24 16:53 Nucleated RBC % (auto) 0 % 07/09/24 16:53 Nucleated RBCs # 0.0 /100WBC 07/09/24 16:53 Sodium 137 mmol/L (136-145) 07/09/24 16:53 Potassium 3.2 mmol/L (3.5-5.1) L 07/09/24 16:53 Chloride 98 mmol/L (98-107) 07/09/24 16:53 Carbon Dioxide 21 mmol/L (22-29) L 07/09/24 16:53 Anion Gap 21.2 (5-19) H 07/09/24 16:53 BUN 8 mg/dL (8-23) 07/09/24 16:53 Creatinine 0.6 mg/dL (0.7-1.2) L 07/09/24 16:53 GFR Calculation 135.6 mL/min (90-130) H 07/09/24 16:53 Glucose 124 mg/dL (65-115) H 07/09/24 16:53 Calculated Osmolality 284 mOsm/kg (285-295) L 07/09/24 16:53 Lactic Acid 2.6 mmol/L (0.5-2.2) H 07/09/24 16:53 Lactic Acid (Sepsis) 1.5 mmol/L (0.5-2.2) 07/09/24 19:25 Calcium 10.2 mg/dL (8.5-10.5) 07/09/24 16:53 Total Bilirubin 0.4 mg/dL (0.15-1.2) 07/09/24 16:53 AST 188 U/L (0-40) H 07/09/24 16:53 ALT 41 U/L (0-41) 07/09/24 16:53 Alkaline Phosphatase 60 U/L (40-130) 07/09/24 16:53 Total Protein 6.8 g/dL (6.6-8.7) 07/09/24 16:53 Albumin 3.8 g/dL (3.5-5.2) 07/09/24 16:53 Globulin 3.0 g/dL (1.3-4.6) 07/09/24 16:53 Lipase 24 U/L (13-60) 07/09/24 16:53 TSH 3.98 uIU/mL (0.27-4.20) 07/09/24 16:53 Urine Color Yellow (Yellow) 07/09/24 18:00 Urine Appearance Clear (CLEAR) 07/09/24 18:00 Urine pH 8.0 (5-7) A 07/09/24 18:00 Ur Specific [place] 1.004 (1.005-1.030) L 07/09/24 18:00 Urine Protein Negative (Negative) 07/09/24 18:00 Urine Glucose (UA) Negative (Normal) 07/09/24 18:00 Urine Ketones Negative (Negative) 07/09/24 18:00 Urine Blood Negative (Negative) 07/09/24 18:00 Urine Nitrate Negative (Negative) 07/09/24 18:00 Urine Bilirubin Negative (Negative) 07/09/24 18:00 Urine Urobilinogen 1.0 mg/dL (Negative) 07/09/24 18:00 Ur Leukocyte Esterase Negative (Negative) 07/09/24 18:00 Urine RBC 0-2 /hpf (0-2) 07/09/24 18:00 Urine WBC 0-5 /hpf (0-5) 07/09/24 18:00 Ur Squamous Epith Cells 0-5 /hpf (0-5) 07/09/24 18:00 Amorphous Sediment Not Reportable 07/09/24 18:00 Urine Bacteria None seen /hpf (NONE) 07/09/24 18:00 Hyaline Casts 0-4 /lpf H 07/09/24 18:00 Discharge Plan Discharge Patient Disposition: Home Clinical Impression: Abdominal pain, Constipation Condition: Stable Prescriptions: New magnesium citrate Solution 296 ml PO ONCE Qty: 296 0RF polyethylene glycol 3350 [Miralax] 17 gram/dose powder 17 g PO DAILY Qty: 510 0RF Rx Instructions: Take 1-2 scoops daily for the next 3 months to keep stools soft glycerin (adult) Suppository 1 supp ID DAILY PRN (Reason: constipation) Qty: 12 0RF No Action amitriptyline 25 mg tablet 25 mg PO DAILY pantoprazole 40 mg tablet,delayed release (DR/EC) 40 mg PO DAILY calcium citrate-vitamin D3 [Calcium Citrate + D] 315 mg-5 mcg (200 unit) tablet 1 tab PO BID docusate sodium [Colace] 100 mg capsule 100 mg PO BID alprazolam [Xanax] 0.5 mg tablet 0.5 mg PO TID furosemide 40 mg tablet 40 mg PO BID cholecalciferol (vitamin D3) 1,250 mcg (50,000 unit) capsule PO Rx Instructions: Take on capsule by mouth twice a week albuterol sulfate 90 mcg/actuation HFA aerosol inhaler 2 puff inhalation QID acetaminophen 500 mg tablet 500 mg PO Q8H PRN Breo Ellipta 50-25 mcg/dose blister with device inhalation magnesium oxide 400 mg (241.3 mg magnesium) tablet 400 mg PO BID Qty: 180 3RF amiodarone 200 mg tablet See Rx Instructions .ROUTE .COMPLEX Qty: 90 3RF Dose Instruction: TAKE ONE TABLET BY MOUTH DAILY Rx Instructions: TAKE ONE TABLET BY MOUTH DAILY atorvastatin 40 mg tablet See Rx Instructions .ROUTE .COMPLEX Qty: 90 3RF Dose Instruction: TAKE ONE TABLET BY MOUTH DAILY Rx Instructions: TAKE ONE TABLET BY MOUTH DAILY Eliquis 5 mg tablet See Rx Instructions .ROUTE .COMPLEX Qty: 180 3RF Dose Instruction: TAKE ONE TABLET BY MOUTH TWICE DAILY Rx Instructions: TAKE ONE TABLET BY MOUTH TWICE DAILY fenofibrate nanocrystallized 145 mg tablet See Rx Instructions .ROUTE .COMPLEX Qty: 90 3RF Dose Instruction: TAKE ONE TABLET BY MOUTH DAILY Rx Instructions: TAKE ONE TABLET BY MOUTH DAILY metoprolol tartrate 100 mg tablet See Rx Instructions .ROUTE .COMPLEX Qty: 180 3RF Dose Instruction: TAKE ONE TABLET BY MOUTH TWICE DAILY Rx Instructions: TAKE ONE TABLET BY MOUTH TWICE DAILY potassium chloride 20 mEq tablet extended release See Rx Instructions .ROUTE .COMPLEX Qty: 180 3RF Dose Instruction: TAKE ONE TABLET BY MOUTH TWICE DAILY Rx Instructions: TAKE ONE TABLET BY MOUTH TWICE DAILY ramipril 5 mg capsule See Rx Instructions .ROUTE .COMPLEX Qty: 90 3RF Dose Instruction: TAKE ONE CAPSULE BY MOUTH DAILY Rx Instructions: TAKE ONE CAPSULE BY MOUTH DAILY Discharge Orders: Discharge ED (Routine); Ordered 07/09/24 Ordered By: Candida Chavez Referrals: Jory Barron [Primary Care Provider, Internal Medicine] Discharge Diet: Advance as tolerated Discharge Activity: Increase activity as tolerated Patient Instructions: Constipation (ED), Abdominal Pain (ED), Opioid Safety, Pain Management Activity Restrictions/Additional Instructions: Thank you for choosing [facility] for your healthcare needs today. You have been screened and evaluated and felt safe for discharge. Health conditions do change or evolve sometimes and as such it is important that you follow up with your Primary Doctor to be re checked, 3-5 days is a general good time frame for follow up. 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 Documented by User: Candida Chavez MD 07/09/24 20:06 HPI - Abdominal Pain General: Chief Complaint: Abdominal Pain Stated Complaint: abdominal pain Time Seen by Provider: 07/09/24 16:04 Related Data Home Medications ?Medication ?Instructions ?Recorded ?Confirmed amitriptyline 25 mg tablet 25 mg PO DAILY 06/12/19 04/08/24 acetaminophen 500 mg tablet 500 mg PO Q8H PRN 11/13/23 04/08/24 albuterol sulfate 90 mcg/actuation 2 puff inhalation QID 11/13/23 04/08/24 aerosol inhaler alprazolam 0.5 mg tablet (Xanax) 0.5 mg PO TID 11/13/23 04/08/24 calcium 315 mg (as 1 tab PO BID 11/13/23 04/08/24 citrate)-vitamin D3 5 mcg (200 unit) tablet (Calcium Citrate + D) cholecalciferol (vitamin D3) 1,250 PO 11/13/23 04/08/24 mcg (50,000 unit) capsule docusate sodium 100 mg capsule 100 mg PO BID 11/13/23 04/08/24 (Colace) furosemide 40 mg tablet 40 mg PO BID 11/13/23 04/08/24 pantoprazole 40 mg tablet,delayed 40 mg PO DAILY 11/13/23 04/08/24 release fluticasone furoate 50 inhalation 04/08/24 04/08/24 mcg-vilanterol 25 mcg/dose inhalation powder (Breo Ellipta) Previous Rx's ?Medication ?Instructions ?Recorded magnesium oxide 400 mg (241.3 mg 400 mg PO BID #180 tabs 09/26/22 magnesium) tablet amiodarone 200 mg tablet See Rx Instructions .Route 02/18/24 .COMPLEX #90 tabs apixaban 5 mg tablet (Eliquis) See Rx Instructions .Route 02/18/24 .COMPLEX #180 tabs atorvastatin 40 mg tablet See Rx Instructions .Route 02/18/24 .COMPLEX #90 tabs fenofibrate nanocrystallized 145 See Rx Instructions .Route 02/18/24 mg tablet .COMPLEX #90 tabs metoprolol tartrate 100 mg tablet See Rx Instructions .Route 02/18/24 .COMPLEX #180 tabs potassium chloride 20 mEq See Rx Instructions .Route 02/18/24 tablet,extended release .COMPLEX #180 tabs ramipril 5 mg capsule See Rx Instructions .Route 02/18/24 .COMPLEX #90 caps glycerin (adult) 1 supp ID DAILY PRN constipation 07/09/24 #12 ea magnesium citrate 296 ml PO ONCE #296 mL 07/09/24 polyethylene glycol 3350 17 17 g PO DAILY #510 grams 07/09/24 gram/dose oral powder (Miralax) Allergies Allergy/AdvReac Type Severity Reaction Status Date / Time captopril Allergy Unknown Unknown Verified 04/08/24 10:54 Review of Systems Narrative: Constitutional symptoms: Negative except as documented in HPI. Skin symptoms: Negative except as documented in HPI. Eye symptoms: Negative except as documented in HPI. ENMT symptoms: Negative except as documented in HPI. Respiratory symptoms: Negative except as documented in HPI. Cardiovascular symptoms: Negative except as documented in HPI. Gastrointestinal symptoms: Negative except as documented in HPI. Genitourinary symptoms: Negative except as documented in HPI. Musculoskeletal symptoms: Negative except as documented in HPI. Neurologic symptoms: Negative except as documented in HPI. Psychiatric symptoms: Negative except as documented in HPI. Endocrine symptoms: Negative except as documented in HPI. [facility] ED PFSH: Medical History Ventricular tachycardia Diabetes CHF (congestive heart failure) HTN (hypertension) CAD (coronary artery disease) Atrial flutter Surgical History S/P appendectomy Family History Other CAD (coronary artery disease) Cancer Social History Smoking and tobacco/nicotine status: former use of tobacco/nicotine Alcohol intake: never Substance/Drug Use: never Course Vital Signs: Vital signs: Vital Signs Temperature 97.8 F 07/09/24 13:50 Pulse Rate 92 07/09/24 19:53 Respiratory Rate 20 H 07/09/24 19:53 Blood Pressure 167/101 07/09/24 19:53 Pulse Oximetry 93 07/09/24 19:53 Oxygen Delivery Me thod Room Air 07/09/24 19:53 MDM - Abdominal Pain Medical Decision Making Patient presents complaining of abdominal pain vomiting and no bowel movement. This is concerning for bowel obstruction. May be constipation however as well. Patient does have a history of A-fib he is on Eliquis and amiodarone. Ischemic colitis or mesenteric ischemia considered, volvulus, broad differential. Not suggestive of cauda equina syndrome by history and exam. Plan to hydrate with 1 L normal saline IV fluid bolus and I ordered CBC CMP lipase and lactic and CT angio abdomen pelvis and EKG. Patient states he has had appendectomy. endorsed to Dr. Chavez [place] 1800 CT of the abdomen pelvis does not show anything acute. No arterial pathology. This was reviewed and interpreted by myself the emergency room physician. I also reviewed the radiology report. Lab work is also unremarkable. Patient had a very good bowel movement after the CT. He says he feels much much better and is ready to go home Assessment and plan: Abdominal pain Constipation - Discharged home - Discussed plan with patient. Answered any questions. - Evaluation and treatment of this problem were appropriate in the emergency setting. Lab Data 07/09/24 16:53 07/09/24 16:53 Labs/Radiology: Radiology Impressions Abdomen/Pelvis CTA 07/09/24 16:14 IMPRESSION: 1. No acute intra-abdominal or pelvic process. 2. No CT angiographic evidence of acute arterial pathology in the abdomen or pelvis. 3. Other nonemergent findings above. Laboratory Results WBC 11.20 10^3/uL (3.29-11.43) 07/09/24 16:53 RBC 5.44 10^6/uL (3.85-5.65) 07/09/24 16:53 Hgb 14.40 g/dL (11.27-16.99) 07/09/24 16:53 Hct 46.4 % (37-53) 07/09/24 16:53 MCV 85.3 fl (82-101) 07/09/24 16:53 MCH 26.5 pg (27-33) L 07/09/24 16:53 MCHC 31.0 g/dL (30-55) 07/09/24 16:53 RDW 14.2 % (12.1-15.1) 07/09/24 16:53 Plt Count 262 10^3/cmm (157-399) 07/09/24 16:53 MPV 10.3 fL (7.4-10.4) 07/09/24 16:53 Neut % (Auto) 74.8 % 07/09/24 16:53 Lymph % (Auto) 16.3 % 07/09/24 16:53 [place] % (Auto) 6.8 % 07/09/24 16:53 Eos % (Auto) 0.6 % 07/09/24 16:53 Baso % (Auto) 0.7 % 07/09/24 16:53 Neut # (Auto) 8.37 10^3/uL (1.8-7.7) H 07/09/24 16:53 Lymph # (Auto) 1.8 10^3/uL (0.8-4.8) 07/09/24 16:53 [place] # (Auto) 0.8 10^3/uL (0.2-0.9) 07/09/24 16:53 Eos # (Auto) 0.1 10^3/uL (0.0-0.8) 07/09/24 16:53 Baso # (Auto) 0.1 10^3/uL (0.0-0.1) 07/09/24 16:53 Nucleated RBC % (auto) 0 % 07/09/24 16:53 Nucleated RBCs # 0.0 /100WBC 07/09/24 16:53 Sodium 137 mmol/L (136-145) 07/09/24 16:53 Potassium 3.2 mmol/L (3.5-5.1) L 07/09/24 16:53 Chloride 98 mmol/L (98-107) 07/09/24 16:53 Carbon Dioxide 21 mmol/L (22-29) L 07/09/24 16:53 Anion Gap 21.2 (5-19) H 07/09/24 16:53 BUN 8 mg/dL (8-23) 07/09/24 16:53 Creatinine 0.6 mg/dL (0.7-1.2) L 07/09/24 16:53 GFR Calculation 135.6 mL/min (90-130) H 07/09/24 16:53 Glucose 124 mg/dL (65-115) H 07/09/24 16:53 Calculated Osmolality 284 mOsm/kg (285-295) L 07/09/24 16:53 Lactic Acid 2.6 mmol/L (0.5-2.2) H 07/09/24 16:53 Lactic Acid (Sepsis) 1.5 mmol/L (0.5-2.2) 07/09/24 19:25 Calcium 10.2 mg/dL (8.5-10.5) 07/09/24 16:53 Total Bilirubin 0.4 mg/dL (0.15-1.2) 07/09/24 16:53 AST 188 U/L (0-40) H 07/09/24 16:53 ALT 41 U/L (0-41) 07/09/24 16:53 Alkaline Phosphatase 60 U/L (40-130) 07/09/24 16:53 Total Protein 6.8 g/dL (6.6-8.7) 07/09/24 16:53 Albumin 3.8 g/dL (3.5-5.2) 07/09/24 16:53 Globulin 3.0 g/dL (1.3-4.6) 07/09/24 16:53 Lipase 24 U/L (13-60) 07/09/24 16:53 TSH 3.98 uIU/mL (0.27-4.20) 07/09/24 16:53 Urine Color Yellow (Yellow) 07/09/24 18:00 Urine Appearance Clear (CLEAR) 07/09/24 18:00 Urine pH 8.0 (5-7) A 07/09/24 18:00 Ur Specific [place] 1.004 (1.005-1.030) L 07/09/24 18:00 Urine Protein Negative (Negative) 07/09/24 18:00 Urine Glucose (UA) Negative (Normal) 07/09/24 18:00 Urine Ketones Negative (Negative) 07/09/24 18:00 Urine Blood Negative (Negative) 07/09/24 18:00 Urine Nitrate Negative (Negative) 07/09/24 18:00 Urine Bilirubin Negative (Negative) 07/09/24 18:00 Urine Urobilinogen 1.0 mg/dL (Negative) 07/09/24 18:00 Ur Leukocyte Esterase Negative (Negative) 07/09/24 18:00 Urine RBC 0-2 /hpf (0-2) 07/09/24 18:00 Urine WBC 0-5 /hpf (0-5) 07/09/24 18:00 Ur Squamous Epith Cells 0-5 /hpf (0-5) 07/09/24 18:00 Amorphous Sediment Not Reportable 07/09/24 18:00 Urine Bacteria None seen /hpf (NONE) 07/09/24 18:00 Hyaline Casts 0-4 /lpf H 07/09/24 18:00 All radiology interpretation(s) finalized by discharge Discharge Plan Discharge Patient Disposition: Home Clinical Impression: Abdominal pain, Constipation Condition: Stable Prescriptions: New magnesium citrate Solution 296 ml PO ONCE Qty: 296 0RF polyethylene glycol 3350 [Miralax] 17 gram/dose powder 17 g PO DAILY Qty: 510 0RF Rx Instructions: Take 1-2 scoops daily for the next 3 months to keep stools soft glycerin (adult) Suppository 1 supp ID DAILY PRN (Reason: constipation) Qty: 12 0RF No Action amitriptyline 25 mg tablet 25 mg PO DAILY pantoprazole 40 mg tablet,delayed release (DR/EC) 40 mg PO DAILY calcium citrate-vitamin D3 [Calcium Citrate + D] 315 mg-5 mcg (200 unit) tablet 1 tab PO BID docusate sodium [Colace] 100 mg capsule 100 mg PO BID alprazolam [Xanax] 0.5 mg tablet 0.5 mg PO TID furosemide 40 mg tablet 40 mg PO BID cholecalciferol (vitamin D3) 1,250 mcg (50,000 unit) capsule PO Rx Instructions: Take on capsule by mouth twice a week albuterol sulfate 90 mcg/actuation HFA aerosol inhaler 2 puff inhalation QID acetaminophen 500 mg tablet 500 mg PO Q8H PRN Breo Ellipta 50-25 mcg/dose blister with device inhalation magnesium oxide 400 mg (241.3 mg magnesium) tablet 400 mg PO BID Qty: 180 3RF amiodarone 200 mg tablet See Rx Instructions .ROUTE .COMPLEX Qty: 90 3RF Dose Instruction: TAKE ONE TABLET BY MOUTH DAILY Rx Instructions: TAKE ONE TABLET BY MOUTH DAILY atorvastatin 40 mg tablet See Rx Instructions .ROUTE .COMPLEX Qty: 90 3RF Dose Instruction: TAKE ONE TABLET BY MOUTH DAILY Rx Instructions: TAKE ONE TABLET BY MOUTH DAILY Eliquis 5 mg tablet See Rx Instructions .ROUTE .COMPLEX Qty: 180 3RF Dose Instruction: TAKE ONE TABLET BY MOUTH TWICE DAILY Rx Instructions: TAKE ONE TABLET BY MOUTH TWICE DAILY fenofibrate nanocrystallized 145 mg tablet See Rx Instructions .ROUTE .COMPLEX Qty: 90 3RF Dose Instruction: TAKE ONE TABLET BY MOUTH DAILY Rx Instructions: TAKE ONE TABLET BY MOUTH DAILY metoprolol tartrate 100 mg tablet See Rx Instructions .ROUTE .COMPLEX Qty: 180 3RF Dose Instruction: TAKE ONE TABLET BY MOUTH TWICE DAILY Rx Instructions: TAKE ONE TABLET BY MOUTH TWICE DAILY potassium chloride 20 mEq tablet extended release See Rx Instructions .ROUTE .COMPLEX Qty: 180 3RF Dose Instruction: TAKE ONE TABLET BY MOUTH TWICE DAILY Rx Instructions: TAKE ONE TABLET BY MOUTH TWICE DAILY ramipril 5 mg capsule See Rx Instructions .ROUTE .COMPLEX Qty: 90 3RF Dose Instruction: TAKE ONE CAPSULE BY MOUTH DAILY Rx Instructions: TAKE ONE CAPSULE BY MOUTH DAILY Discharge Orders: Discharge ED (Routine); Ordered 07/09/24 Ordered By: Candida Chavez Referrals: Jory Barron [Primary Care Provider, Internal Medicine] Discharge Diet: Advance as tolerated Discharge Activity: Increase activity as tolerated Patient Instructions: Constipation (ED), Abdominal Pain (ED), Opioid Safety, Pain Management Activity Restrictions/Additional Instructions: Thank you for choosing [facility] for your healthcare needs today. You have been screened and evaluated and felt safe for discharge. Health conditions do change or evolve sometimes and as such it is important that you follow up with your Primary Doctor to be re checked, 3-5 days is a general good time frame for follow up. 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
[2024-07-09 17:12] LABS: Basophils # 0.1 10^3/uL (0.0-0.1); Basophils % 0.7 %; Eosinophils # 0.1 10^3/uL (0.0-0.8); Eosinophils % 0.6 %; Hematocrit 46.4 % (37-53); Lymphocytes # 1.8 10^3/uL (0.8-4.8); Lymphocytes % 16.3 %; Mean Corpuscular Hemoglobin 26.5 pg (27-33); Mean Corpuscular Volume 85.3 fl (82-101); Mean Platelet Volume 10.3 fL (7.4-10.4); Monocytes # 0.8 10^3/uL (0.2-0.9); Monocytes % 6.8 %; Neutrophils # 8.37 10^3/uL (1.8-7.7); Neutrophils % 74.8 %; Nucleated Red Blood Cells % 0 %; Platelet Count 262 10^3/cmm (157-399); Red Blood Count 5.44 10^6/uL (3.85-5.65); Red Cell Distribution Width 14.2 % (12.1-15.1)
[2024-07-09] MEDS: sodium chloride 0.9% 1,000 ML 999 ML IV (17:27)
[2024-07-09] MEDS: ondansetron 2 mg/ML SDV 2 mL 4 MG IVP (17:28)
[2024-07-09 17:38] LABS: Lactic Sepsis W/Reflex 2.6 mmol/L (0.5-2.2)
[2024-07-09 17:54] LABS: Alanine Aminotransferase 41 U/L (0-41); Albumin Level 3.8 g/dL (3.5-5.2); Alkaline Phosphatase 60 U/L (40-130); Anion Gap 21.2 (5-19); Aspartate Amino Transferase 188 U/L (0-40); Blood Urea Nitrogen 8 mg/dL (8-23); Calcium 10.2 mg/dL (8.5-10.5); Carbon Dioxide 21 mmol/L (22-29); Chloride 98 mmol/L (98-107); Glomerular Filtration Rate 135.6 mL/min (90-130); Glucose 124 mg/dL (65-115); Lipase 24 U/L (13-60); Osmolality Calculated 284 mOsm/kg (285-295); Potassium 3.2 mmol/L (3.5-5.1); Sodium 137 mmol/L (136-145); Thyroid Stimulating Hormone 3.98 uIU/mL (0.27-4.20); Total Bilirubin 0.4 mg/dL (0.15-1.2); Total Protein 6.8 g/dL (6.6-8.7)
[2024-07-09 18:28] VITALS: BP 146/92; PULSE 93; O2SAT 91
[2024-07-09] MEDS: iohexol 350 mg/mL 500 mL Btl (per mL) IV (18:40)
[2024-07-09 18:43] LABS: Bilirubin Urine Negative (Negative); Blood Urine Negative (Negative); Glucose Urine UA Negative (Normal); Ketones Urine Negative (Negative); Leukocyte Esterase Urine Negative (Negative); Nitrate Urine Negative (Negative); Protein Urine Negative (Negative); Specific Gravity, Urine 1.004 (1.005-1.030); Urine Appearance Clear (CLEAR); Urine Color Yellow (Yellow)
[2024-07-09 18:46] LABS: Add Urine Microscopic? YES; Bacteria Urine None Seen /hpf; Hyaline Casts Urine 0-4 /lpf; RBC Urine 0-2 /hpf (0-2); Squamous Epithelial Cell Urine 0-5 /hpf (0-5); WBC Urine 0-5 /hpf (0-5)
[2024-07-09 18:53] LABS: Reflex Lactate Order REFLEX LACTIC ORDERD
[2024-07-09 19:48] LABS: Lactic Acid level (Lactate) 1.5 mmol/L (0.5-2.2)
[2024-07-09 19:53] VITALS: BP 167/101; PULSE 92; RESP 20; O2SAT 93
[2024-07-09 20:19] VITALS: BP 111/52; PULSE 91; RESP 18; O2SAT 93
== END 2024-07-09 20:21 | disposition home or self-care (01) ==
PROVIDERS: Emergency Medicine; Emergency Provider Emergency Medicine; PCP Internal Medicine
DX: K59.00 Constipation, unspecified (principal); R10.9 Unspecified abdominal pain
CPT/HCPCS: 36415; 74174; 80053; 81001; 83605; 83690; 84443; 85025; 93005; 96361; 96374; 99285; J2405; J7030

== ENCOUNTER → 2024-08-06 13:36 | Outpatient (BNVA) | payer MEDICARE, MEDICAID, SELFPAY | PROVIDERS: PCP Internal Medicine; Visit Provider Physician Assistant | DX: M25.511 Pain in right shoulder (principal); M75.42 Impingement syndrome of left shoulder; M75.41 Impingement syndrome of right shoulder | CPT/HCPCS: 20610; 73030; 99213; J3301; J9999 ==